=== PATIENT | male | born 1985 | race Caucasian/White ===

== ENCOUNTER 2016-05-13 17:27 | Emergency (ER) | payer BC ==
--- NOTE | 2016-05-13 19:47 | ER Document Report ---
ED Medical Screen (RME) - General Stated Complaint: LACERATION TO HEAD Mode of Arrival: Ambulatory Information source: Patient Notes: pt presents with c/o scalp laceration after slamming door of suv on head at 1630. Drove himself home, drove here.. no change in loc. tetanus up to date. at his side reports patient acting normal. Pt laughing no distress, denies vomiting. 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 Lives with: Family Family history: CAD - grandfather - Medical History Medical History: Negative Past Surgical History: Reports: Hx Oral Surgery, Other - lasik - Immunizations Hx Diphtheria, Pertussis, Tetanus Vaccination: Yes Review of Systems - Review of Systems Constitutional: No symptoms reported EENT: No symptoms reported Cardiovascular: No symptoms reported Respiratory: No symptoms reported Gastrointestinal: No symptoms reported Genitourinary: No symptoms reported Male Genitourinary: No symptoms reported Musculoskeletal: No symptoms reported Skin: Other - scalp laceration Hematologic/Lymphatic: No symptoms reported Neurological/Psychological: No symptoms reported Physical Exam - Vital signs Vitals: Temp Pulse Resp BP Pulse Ox 98.1 F 81 20 137/87 H 99 05/13/16 17:57 05/13/16 17:57 05/13/16 17:57 05/13/16 17:57 05/13/16 17:57 Course - Vital Signs Vital signs: Temp Pulse Resp BP Pulse Ox 98.1 F 81 20 137/87 H 99 05/13/16 17:57 05/13/16 17:57 05/13/16 17:57 05/13/16 17:57 05/13/16 17:57 Procedures - Laceration/Wound Repair scalp Wound length (cm): 2 Wound's Depth, Shape: Superficial Laceration pre-procedure: Shur-Clens applied Wound Repaired With: Amanda Number of Sutures: 2 - amanda Adult Head Front/Back picture: 1 - 2 cm laceration Doctor's Discharge - Discharge Clinical Impression: Elevated blood pressure reading Laceration of head Qualifiers: Encounter type: initial encounter Location of open wound of head: scalp Foreign body presence: without foreign body Qualified Code(s): S01.01XA - Laceration without foreign body of scalp, initial encounter Instructions: Soap Cleansing ([facility]), Care of Stapled Wounds ([facility]), Oral Narcotic Medication ([facility]) Additional Instructions: *You have been treated for scalp laceration *Take tylenol as indicated *Monitor the site for signs of infection such as increasing pain, redness, swelling, warmth *Keep the site clean *Follow up with here in 5 days for staple removal *Return to ED for signs of infection, worsening condition, changes, needs Forms: Elevated Blood Pressure, Return to Work
[2016-05-13] MEDS ORDERED: HYDROCODONE/ACETAMINOPHEN 5-325 MG 6 TAB/DSPK PO PRN (19:56)
[2016-05-13 20:00] VITALS: BP 133/89
== END 2016-05-13 20:07 | disposition home or self-care (01) ==
LOC: ER 17:27
PROC: 0HQ0XZZ Repair Scalp Skin, External Approach (ICD-10-PCS; principal; 2016-05-13)
DX: S01.01XA Laceration without foreign body of scalp, initial encounter (principal); W20.8XXA Other cause of strike by thrown, projected or falling object, initial encounter; R03.0 Elevated blood-pressure reading, without diagnosis of hypertension; F17.290 Nicotine dependence, other tobacco product, uncomplicated
CPT/HCPCS: 99282